=== PATIENT | male | born 1985 | race American Indian/Alaskan Native ===

== ENCOUNTER 2019-10-31 07:25 | Emergency (ER) | payer MEDICAID, OTHER ==
[2019-10-31 07:50] VITALS: BP 112/72
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
== END 2019-10-31 09:42 ==
LOC: ED 07:25
DX: R06.02 Shortness of breath (principal); R05 Cough; Z53.21 Procedure and treatment not carried out due to patient leaving prior to being seen by health care provider
CPT/HCPCS: 71046